=== PATIENT | female | born 1975 | race Caucasian/White ===

== ENCOUNTER → 2017-05-08 | Outpatient (CLI) | payer OTHER ==
--- NOTE | 2017-05-08 14:35 | CT ---
EXAMINATION TYPE: CT chest w con DATE OF EXAM: 05/08/2017 COMPARISON: 1121 and 12 HISTORY: Abnormal CXR CT DLP: 417 mGycm Automated exposure control for dose reduction was used. CONTRAST: CT scan of the chest is performed with IV Contrast, patient injected with 100 ml mL of Omnipaque 300. FINDINGS: LUNGS: The lungs are grossly clear, there is no concerning parenchymal mass or nodule identified. T here is no pleural effusion or pneumothorax seen. The tracheobronchial tree is patent. MEDIASTINUM: There are no greater than 1 cm hilar or mediastinal lymph nodes. No pericardial effusi on is seen. Thoracic aorta is of normal caliber. The heart is not enlarged. UPPER ABDOMEN: No significant abnormality appreciated. OTHER: There is a severe pectus excavatum deformity of the anterior chest wall. This is unchanged fr om prior examination. IMPRESSION: 1. Stable pectus deformity of the anterior chest wall.
== END | disposition home or self-care (01) ==
LOC: RADCTMAIN 13:36
PROVIDERS: ATTEND Family Medicine
DX: M95.4 Acquired deformity of chest and rib (principal)
CPT/HCPCS: 71260; Q9967

== ENCOUNTER → 2017-05-24 | Outpatient (CLI) | payer OTHER ==
--- NOTE | 2017-05-24 11:39 | MR ---
EXAMINATION TYPE: MR brain/cspine wo DATE OF EXAM: 05/24/2017 COMPARISON: NONE HISTORY: 41-year-old female with headaches, Migraines, neck pain, Cervicalgia TECHNIQUE: Multiplanar, multisequence images of the brain and brainstem were acquired without IV con trast. Diffusion weighted imaging is performed. Subsequent multiplanar, multisequence images of the c ervical spine without contrast. FINDINGS: BRAIN: No evidence for acute infarction, hemorrhage, mass, mass effect, midline shift, herniation, effacemen t of basal cisterns, or extra-axial fluid collection. The ventricles and sulci are age-appropriate. Major intracranial flow voids are intact. T2/FLAIR weighted sequences show no white matter signal abnormality. Midline structures demonstrate normal morphology. The craniocervical junction is normal. Patient gaze is slightly divergent suggesting underlying strabismus. Mild mucosal thickening within the ethmoid air cells, couple small polyps or mucous retention cyst in the anterior right maxillary sinus and in the left lateral sphenoid sinus. Larger polyp/mucosal rete ntion cyst along the floor of the left maxillary sinus. Additionally, there is partial opacification involving the left mastoid air cells. CERVICAL SPINE: There is a 8mm cystic structure in the left strap musculature abutting the left thyroid cartilage diallo pected thyroglossal duct cyst. No craniocervical junction abnormalities, predental space widening, or prevertebral soft tissue swell ing. There is slight straightening of the normal cervical vertebral cysts but with preserved alignment. Di sc interspaces are maintained without any focal disc herniation. Mild facet degenerative change is noted and mild uncovertebral joint spurring as well. No spinal canal stenosis. No significant neural foraminal stenosis seen. No suspicious bone marrow replacement. Normal T2 cord signal of the cervical cord allowing for the scatter artifacts. COMBINED IMPRESSION: BRAIN: 1. No intracranial abnormality seen. 2. Findings suggest a subtle strabismus. Correlate with physical exam findings. 3. Trapped fluid in the left mastoid air cells. Correlate for any mastoid pain to exclude mastoiditis . 4. Mild chronic ethmoid and maxillary sinus disease. CERVICAL SPINE: 1. Scattered facet and mild uncovertebral joint arthropathy. 2. No significant spinal canal or neural foraminal stenosis.
== END | disposition home or self-care (01) ==
LOC: RADMRIMAIN 09:20
PROVIDERS: ATTEND Family Medicine
DX: M46.02 Spinal enthesopathy, cervical region (principal); M54.2 Cervicalgia; R51 Headache; Z86.69 Personal history of other diseases of the nervous system and sense organs
CPT/HCPCS: 70551; 72141

== ENCOUNTER → 2017-07-03 | Outpatient (CLI) | payer OTHER ==
[2017-07-01 16:54] VITALS: BMI 17.2
[2017-07-03 11:57] VITALS: BP 111/75; PULSE 87; RESP 16; TEMP 97.7
--- NOTE | 2017-07-03 12:18 | P.CONS ---
History of Present Illness - Reason for Consult Consult date: 07/03/17 - Chief Complaint Headache and neck pain - History of Present Illness This is a 41-year-old female with history of headache and neck pain that started about one year ago when the patient woke up in the morning after being drunk . The pain radiates from the occipital area to the frontal area of the head with no paresthesia in the scalp. She also feels pain in the upper neck area on both sides of the cervical spine. The patient denies any paresthesia in the upper or lower extremities also she denies any weakness in the upper or lower extremities and or any bowel or bladder dysfunction. This pain does not wake the patient up at night. The patient lost a few pounds overweight and she attributed that to started to smoke cigarettes again. Movement of the cervical spine does not increase her pain. The patient does not notice any exacerbating or relieving factors however she takes Motrin for the pain and uses warm pads. This pain happens almost daily and goes away and most of the time on its own. 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 The patient smokes half a pack of cigarettes a day and she denies using any alcohol at this time. Past Medical History Additional Past Medical History / Comment(s): chronic neck pain, frequent headaches-start back of head, currently has cough & congestion-just started, has thyroglossal cyst-to see ENT dr. freeman History of Any Multi-Drug Resistant Organisms: None Reported Past Surgical History: Adenoidectomy, Ear Surgery, Tonsillectomy, Tubal Ligation , Uterine Ablation Additional Past Surgical History / Comment(s): tubes in ears, D & C, LEEP procedure Past Anesthesia/Blood Transfusion Reactions: No Reported Reaction Smoking Status: Current every day smoker - Past Family History Father Family Medical History: Cancer Medications and Allergies Home Medications Medication Instructions Recorded Confirmed Type Aspirin/Acetaminophen/Caffeine 1 each PO Q6H 07/01/17 07/01/17 History [Excedrin Migraine Caplet] Ibuprofen [Motrin] 200 - 400 mg PO Q6HR PRN 07/01/17 07/01/17 History Amoxic-Pot Clav 500-125 mg 1 tab PO TID 07/03/17 07/03/17 History [Augmentin 500-125 mg] L.acidoph,Paracasei, B.lactis 1 tab PO DAILY 07/03/17 07/03/17 History [Probiotic] Allergies Allergy/AdvReac Type Severity Reaction Status Date / Time Latex, Natural Rubber Allergy Rash/Hives Verified 07/01/17 16:52 Physical Exam Vitals: Vital Signs Temp Pulse Resp BP Pulse Ox 07/03/17 11:47 97.7 F 87 16 111/75 100 - Psychiatric Psychiatric: A&O x's 3, appropriate affect, intact judgment & insight There is tenderness in the cervical paravertebral musculature, there is no tenderness in the occipital area. The patient has normal muscle strength in the upper extremities. She has normal range of motion of the cervical spine. Lungs are clear to auscultation heart is regular no murmurs. Assessment and Plan Plan: This is a 41-year-old female with history of occipital and upper neck area pain with no neurologic changes of the upper or lower extremities. The patient's cervical spine MRI showed only mild spondylosis. The brain MRI was also normal except for some thickening in the ethmoid sinus mucosa and the patient is taking antibiotics for this. The MRI also showed large polyp/mucosal retention cyst along the floor of the left maxillary sinus. At this point I will schedule the patient to have occipital nerve block bilaterally as diagnostic procedure and also to have trigger point injection in the cervical paravertebral musculature. The procedure was explained to the patient and her questions were answered.
== END | disposition home or self-care (01) ==
LOC: PNWHC3 11:38
PROVIDERS: ATTEND Anesthesiology
DX: M47.812 Spondylosis without myelopathy or radiculopathy, cervical region (principal); F17.200 Nicotine dependence, unspecified, uncomplicated; Z79.82 Long term (current) use of aspirin; Z79.899 Other long term (current) drug therapy; Z91.040 Latex allergy status
CPT/HCPCS: 99211

== ENCOUNTER 2017-07-15 06:19 | Day surgery (SDC) | payer OTHER ==
[2017-07-10 17:24] VITALS: BMI 17.2
[~2017-07-15 06:19] MED LIST: LACTATED RINGERS 1,000 ML IV SCH
[2017-07-15 06:48] VITALS: TEMP 97.3
[2017-07-15] MEDS ORDERED: LIDOCAINE 1% 20 ML VIAL (10MG/ML) FOR IV START INTRADERMA ONE (07:06)
--- NOTE | 2017-07-15 07:31 | P.PCN ---
Date of Procedure: 07/15/17 Procedure(s) Performed: Pre-operative diagnosis: 1- Bilateral occipital neuralgea. 2-myofascial pain syndromes cervical area. 3-cervical spondylosis. Post Operative Diagnosis Same as preop diagnosis Procedure: 1- Bilateral occipital nerve block . 2-3 trigger point injections cervical paravertebral muscles 2 on the right side , and 3 on the left side cervical paravertebral muscles ANESTHESIA: Conscious sedation with Versed. 2 mg and fentanyl 100 micrograms EBL: Minimal PROCEDURE INDICATION: The patient with neck pain and headache secondary to occipital neuralgea unresponsive to conservative treatments. PROCEDURE DESCRIPTION / TECHNIQUE: The patient was seen and identified in the preoperative area. Risks, benefits, complications, and alternatives were discussed with the patient, the patient agreed to proceed with the procedure and signed the consent. IV was started. Vital signs remained stable throughout the procedure. Patient was taken to the OR and time out was completed. The patient was placed in the sitting position on the procedure table. A pillow was placed under the patients chest to increase the cervical interlaminar space. The cervical area and right occiptial area were prepped with alcohol swab. Critical pause was taken. Vital signs were closely monitored during the procedure. Conscious sedation was used during the procedure to decrease patients anxiety. The right occiptal ridge was palpated and was then accessed with a 25 G needle. Then after negative aspiration, 5 ml of the block solution containing 6 ml of PF Buvicaine 0.5% and Kenalog 40 mg was injected. Needle was withdrawn intact. Then the same procedure was repeated on the left side and related the left occipital nerve block, after negative aspiration 5 mL of the block solution containing ropivacaine 0.5% and 40 mg of Kenalog injected after negative aspiration The trigger point was identified in the preop holding area, 2 on the right side cervical paravertebral muscles and 3 on the left side cervical paravertebral muscles each one of them injected with Marcaine 0.5% 2 mL injected at each trigger point after negative aspiration, using 25-gauge needle, injections done after negative aspiration and there was no paresthesia during the injections, Patient tolerated procedure well. No acute complications.
[2017-07-15 08:00] VITALS: BP 93/68; PULSE 71; RESP 18
[2017-07-15] MEDS ORDERED: LACTATED RINGERS 1,000 ML IV ONE (08:01)
== END 2017-07-15 08:09 | disposition home or self-care (01) ==
LOC: ORPAIN 06:19
PROVIDERS: ATTEND Specialist
DX: M54.81 Occipital neuralgia (principal); M47.812 Spondylosis without myelopathy or radiculopathy, cervical region; M79.1 Myalgia; Z91.040 Latex allergy status
CPT/HCPCS: 99152; 20553; 64405; J2250; J3301; J3010

== ENCOUNTER 2017-10-16 06:26 | Day surgery (SDC) | payer OTHER ==
[2017-10-10 12:18] VITALS: BMI 16.9
[2017-10-16] MEDS ORDERED: LACTATED RINGERS 1,000 ML IV ONE (06:40)
[2017-10-16] MEDS ORDERED: LIDOCAINE 1% 20 ML VIAL (10MG/ML) FOR IV START INTRADERMA ONE (06:40)
[2017-10-16] MEDS ORDERED: LACTATED RINGERS 1,000 ML IV SCH (07:00)
--- NOTE | 2017-10-16 07:19 | P.PCN ---
Date of Procedure: 10/16/17 Procedure(s) Performed: Pre-operative diagnosis: 1- Bilateral occipital neuralgea Post Operative Diagnosis 1- Bilateral occipital neuralgea Procedure: 1- Bilateral occipital nerve block ANESTHESIA: Moderate sedation with Versed.2 mg and fentanyl 100 micrograms EBL: Minimal PROCEDURE INDICATION: The patient with neck pain and headache secondary to occipital neuralgea unresponsive to conservative treatments. PROCEDURE DESCRIPTION / TECHNIQUE: The patient was seen and identified in the preoperative area. Risks, benefits, complications, and alternatives were discussed with the patient, the patient agreed to proceed with the procedure and signed the consent. IV was started. Vital signs remained stable throughout the procedure. Patient was taken to the OR and time out was completed. The patient was placed in the pron (sitting ) position on the procedure table. A pillow was placed under the patients chest to increase the cervical interlaminar space. The cervical area and right occiptial area were prepped with alcohol swab. Critical pause was taken. Vital signs were closely monitored during the procedure. Conscious sedation was used during the procedure to decrease patients anxiety. The right occiptal ridge was palpated and was then accessed with a 25 G needle. Then after negative aspiration, 6 ml of the block solution containing 6 ml of PF Buvicaine 0.5% and Kenalog 40 mg was injected. Needle was withdrawn intact. Then the same procedure was repeated on the left side and related the left occipital nerve block, after negative aspiration 6 mL of the block solution containing ropivacaine 0.5% and 40 mg of Kenalog injected after negative aspiration Patient tolerated procedure well. No acute complications.
[2017-10-16] MEDS ORDERED: IV FLUID CONTINUATION 800 ML IV ONE (07:24)
[2017-10-16 16:27] VITALS: BP 95/61; PULSE 77; RESP 18; TEMP 98.1
== END 2017-10-16 08:00 | disposition home or self-care (01) ==
LOC: ORPAIN 06:26
PROVIDERS: ATTEND Specialist
DX: M54.81 Occipital neuralgia (principal); Z91.040 Latex allergy status
CPT/HCPCS: 81025; 64405; J2250; J3301; J3010; G0463; 99211

== ENCOUNTER → 2017-11-11 | Outpatient (CLI) | payer OTHER ==
[2017-11-11 13:51] VITALS: BP 110/75; PULSE 60; RESP 18; TEMP 98.2
--- NOTE | 2017-11-11 14:26 | P.PN ---
Progress Note - Text Progress Note Date: 11/11/17 Patient returns for followup for chronic headache pain secondary to occipital neuralgia. Patient recently underwent bilateral ONB at the beginning of October with good relief since procedure. Patient denies adverse drug effects from medications. Today, pt denies new-onset weakness, bowel/bladder incontinence, or any other signs or symptoms of cauda equina syndrome. There are no signs of acute intoxication, and no indications of medication diversion or overuse. In addition to above, 13-point review of systems is also negative for chest pain , shortness of breath, changes in vision, changes in hearing, new onset weakness , abdominal pain, diarrhea, extreme fatigue, malaise, fever, skin changes, homicidal or suicidal ideation, or bowel or bladder incontinence. Vital Signs: Reviewed in EMR Gen: WDWN, AAOx3, NAD HEENT: NCAT, EOMI, hearing grossly normal, + TTP over occipital ridges Pulm: resp unlabored Abd: soft, NT, ND Neck: supple, trachea midline Imaging: Reviewed in EMR Assessment: 1. occipital neuralgia 2. chronic pain syndrome Plan: 1. Explanation: Opioid and psychological risk scores were reviewed. Diagnoses , prognoses, and multiple treatment options including but not limited to physical therapy, interventional therapies, adjuvant medical therapies, narcotic medication therapies, and surgery were discussed with the patient and all questions were answered to the patient's satisfaction. 2. Opioid agreement: no opioids prescribed today 3. Counseling: The patient was counseled extensively on BODY MASS INDEX, EXERCISE. Specifically, the patient was instructed regarding the importance of weight control, and exercise in the context of both chronic pain and overall health. 4. Procedures: bilateral ONB in approximately 8 weeks 5. Consultations: None 6. Investigations: None 7. Medications: none prescribed 8. Disposition: f/u for procedure as scheduled PQRS measures: 1-Patient's medications are documented in the chart. 2-Tobacco use is negative 3-Patient has not had a pneumococcal vaccine. 4-Advanced care planning discussed, patient unable to give. 5-Opioid contract NOT signed with the patient. 6-Pain positive, follow-up visit or procedure scheduled 7-Patient's blood pressure measured and documented, and patient will follow up with the primary care due to hypertension. 8-Patient's weight was measured, and body mass index ABOVE the normal limits, and counseling was done. Patient instructed to follow up with PCP. 9-Patient WAS NOT identified as an unhealthy alcohol user.
== END | disposition home or self-care (01) ==
LOC: PNWHC3 13:32
PROVIDERS: ATTEND Anesthesiology
DX: G89.4 Chronic pain syndrome (principal); M54.81 Occipital neuralgia
CPT/HCPCS: 99211

== ENCOUNTER 2018-03-10 20:21 | Emergency (ER) | payer OTHER ==
[2018-03-10 20:40] VITALS: RESP 18
[2018-03-10] MEDS ORDERED: SODIUM CHLORIDE 0.9% 500 ML IV STA (20:56)
[2018-03-10] MEDS ORDERED: AZITHROMYCIN 500 MG in SODIUM CHLORIDE 0.9% 250 ML IVPB STA (20:56)
[2018-03-10] MEDS ORDERED: SODIUM CHLORIDE 0.9% 1,000 ML IV STA ×2 (20:56)
[2018-03-10] MEDS ORDERED: methylPREDNISolone SOD SUCCI 125 MG/2 ML VIAL IV STA (20:56)
[2018-03-10] MEDS ORDERED: IPRATROPIUM 0.5 MG/2.5 ML NEBU INHALATION STA (20:56)
[2018-03-10] MEDS ORDERED: ALBUTEROL NEBULIZED 2.5 MG/3 ML INHALATION STA (20:56)
--- NOTE | 2018-03-10 21:03 | ED ---
General Adult HPI - General Chief complaint: Shortness of Breath Stated complaint: REGULO/Chest Pain/swollen throat Time Seen by Provider: 03/10/18 20:45 Source: patient, RN notes reviewed, old records reviewed Mode of arrival: ambulatory Limitations: no limitations - History of Present Illness Initial comments: This is a 42-year-old female the ER for evaluation of shortness of breath, left- sided chest pain with positive shortness of breath. Symptoms worsened he takes a deep breath, patient unable to take deep breath secondary to pain. She has had history of pneumonia does have history of continue to smoke. Denies known fever but does have increased cough and congestion no travel history no known sick contacts. No modifying factors for symptoms - Related Data Home Medications Medication Instructions Recorded Confirmed Albuterol Inhaler [Ventolin Hfa 1 puff INHALATION RT-Q6H PRN 03/10/18 03/10/18 Inhaler] Ergocalciferol [Vitamin D2] 50,000 unit PO TU 03/10/18 03/10/18 Ibuprofen [Motrin Ib] 800 mg PO TID PRN 03/10/18 03/10/18 Naproxen Sodium [Aleve] 220 mg PO BID PRN 03/10/18 03/10/18 Allergies Allergy/AdvReac Type Severity Reaction Status Date / Time Latex, Natural Rubber Allergy Rash/Hives Verified 03/10/18 21:09 Review of Systems ROS Statement: Those systems with pertinent positive or pertinent negative responses have been documented in the HPI. ROS Other: All systems not noted in ROS Statement are negative. Past Medical History Past Medical History: Musculoskeletal Disorder Additional Past Medical History / Comment(s): chronic neck pain, frequent headaches-start back of head,thyroglossal cyst History of Any Multi-Drug Resistant Organisms: None Reported Past Surgical History: Adenoidectomy, Ear Surgery, Tonsillectomy, Tubal Ligation , Uterine Ablation Additional Past Surgical History / Comment(s): BMT.D & C, LEEP procedure, PAIN CLINIC INJECTIONS Past Anesthesia/Blood Transfusion Reactions: No Reported Reaction Past Psychological History: No Psychological Hx Reported Smoking Status: Current every day smoker Past Alcohol Use History: Rare Past Drug Use History: None Reported - Past Family History Father Family Medical History: Cancer General Exam Limitations: no limitations General appearance: alert, in no apparent distress Head exam: Present: atraumatic, normocephalic, normal inspection Eye exam: Present: normal appearance, PERRL, EOMI. Absent: scleral icterus, conjunctival injection, periorbital swelling ENT exam: Present: normal exam, mucous membranes moist Neck exam: Present: normal inspection. Absent: tenderness, meningismus, lymphadenopathy Respiratory exam: Present: normal lung sounds bilaterally. Absent: respiratory distress, wheezes, rales, rhonchi, stridor Cardiovascular Exam: Present: regular rate, normal rhythm, normal heart sounds. Absent: systolic murmur, diastolic murmur, rubs, gallop, clicks GI/Abdominal exam: Present: soft, normal bowel sounds. Absent: distended, tenderness, guarding, rebound, rigid Extremities exam: Present: normal inspection, full ROM, normal capillary refill. Absent: tenderness, pedal edema, joint swelling, calf tenderness Back exam: Present: normal inspection Neurological exam: Present: alert, oriented X3, CN II-XII intact Psychiatric exam: Present: normal affect, normal mood Skin exam: Present: warm, dry, intact, normal color. Absent: rash Course Vital Signs 03/10/18 03/10/18 03/10/18 20:38 21:11 21:24 Temperature 98.8 F Pulse Rate 115 H 99 91 Respiratory 18 18 Rate Blood Pressure 118/56 129/60 O2 Sat by Pulse 97 98 Oximetry 03/10/18 03/10/18 03/10/18 21:33 21:55 22:33 Temperature 99.9 F H Pulse Rate 95 107 H 107 H Respiratory 18 18 Rate Blood Pressure 121/55 108/56 O2 Sat by Pulse 100 96 Oximetry - Reevaluation(s) Reevaluation #1: 03/10/18 23:10 Patient does have improvement with breathing treatment Medical Decision Making - Medical Decision Making 42 female the ER with left-sided chest pain secondary shortness breath cough congestion wheezing. Positive bronchitis. Patient CT negative labwork normal EKG negative, patient given nebulizer treatments, albuterol and can be discharged home - Lab Data Result diagrams: 03/10/18 21:00 03/10/18 21:00 Lab Results 03/10/18 03/10/18 03/10/18 Range/Units 21:00 21:00 21:00 WBC 8.0 (3.8-10.6) k/uL RBC 4.00 (3.80-5.40) m/uL Hgb 12.5 (11.4-16.0) gm/dL Hct 36.4 (34.0-46.0) % MCV 91.1 (80.0-100.0) fL MCH 31.3 (25.0-35.0) pg MCHC 34.3 (31.0-37.0) g/dL RDW 12.4 (11.5-15.5) % Plt Count 132 L (150-450) k/uL Neutrophils % 83 % Lymphocytes % 8 % Monocytes % 7 % Eosinophils % 1 % Basophils % 0 % Neutrophils # 6.6 (1.3-7.7) k/uL Lymphocytes # 0.7 L (1.0-4.8) k/uL Monocytes # 0.5 (0-1.0) k/uL Eosinophils # 0.1 (0-0.7) k/uL Basophils # 0.0 (0-0.2) k/uL PT (9.0-12.0) sec INR (<1.2) APTT (22.0-30.0) sec D-Dimer (<0.60) mg/L FEU Sodium 139 (137-145) mmol/L Potassium 3.9 (3.5-5.1) mmol/L Chloride 102 (98-107) mmol/L Carbon Dioxide 27 (22-30) mmol/L Anion Gap 10 mmol/L BUN 14 (7-17) mg/dL Creatinine 0.67 (0.52-1.04) mg/dL Est GFR (CKD-EPI)AfAm >90 (>60 ml/min/1.73 sqM) Est GFR (CKD-EPI)NonAf >90 (>60 ml/min/1.73 sqM) Glucose 104 H (74-99) mg/dL Calcium 8.7 (8.4-10.2) mg/dL Total Bilirubin 0.6 (0.2-1.3) mg/dL AST 16 (14-36) U/L ALT 26 (9-52) U/L Alkaline Phosphatase 63 (38-126) U/L Total Creatine Kinase 47 (30-135) U/L CK-MB (CK-2) <0.2 (0.0-2.4) ng/mL CK-MB (CK-2) Rel Index Troponin I <0.012 (0.000-0.034) ng/mL NT-Pro-B Natriuret Pep pg/mL Total Protein 5.9 L (6.3-8.2) g/dL Albumin 3.8 (3.5-5.0) g/dL 03/10/18 03/10/18 Range/Units 21:00 21:00 WBC (3.8-10.6) k/uL RBC (3.80-5.40) m/uL Hgb (11.4-16.0) gm/dL Hct (34.0-46.0) % MCV (80.0-100.0) fL MCH (25.0-35.0) pg MCHC (31.0-37.0) g/dL RDW (11.5-15.5) % Plt Count (150-450) k/uL Neutrophils % % Lymphocytes % % Monocytes % % Eosinophils % % Basophils % % Neutrophils # (1.3-7.7) k/uL Lymphocytes # (1.0-4.8) k/uL Monocytes # (0-1.0) k/uL Eosinophils # (0-0.7) k/uL Basophils # (0-0.2) k/uL PT 9.8 (9.0-12.0) sec INR 1.0 (<1.2) APTT 24.4 (22.0-30.0) sec D-Dimer 0.37 (<0.60) mg/L FEU Sodium (137-145) mmol/L Potassium (3.5-5.1) mmol/L Chloride (98-107) mmol/L Carbon Dioxide (22-30) mmol/L Anion Gap mmol/L BUN (7-17) mg/dL Creatinine (0.52-1.04) mg/dL Est GFR (CKD-EPI)AfAm (>60 ml/min/1.73 sqM) Est GFR (CKD-EPI)NonAf (>60 ml/min/1.73 sqM) Glucose (74-99) mg/dL Calcium (8.4-10.2) mg/dL Total Bilirubin (0.2-1.3) mg/dL AST (14-36) U/L ALT (9-52) U/L Alkaline Phosphatase (38-126) U/L Total Creatine Kinase (30-135) U/L CK-MB (CK-2) (0.0-2.4) ng/mL CK-MB (CK-2) Rel Index Troponin I (0.000-0.034) ng/mL NT-Pro-B Natriuret Pep 108 pg/mL Total Protein (6.3-8.2) g/dL Albumin (3.5-5.0) g/dL - Radiology Data Radiology results: report reviewed (Chest x-rays negative for acute disease, CT negative for acute disease), image reviewed Disposition Clinical Impression: Acute exacerbation of chronic obstructive airways disease Disposition: HOME SELF-CARE Condition: Good Instructions: Acute Bronchitis (ED), Chronic Bronchitis (ED) Is patient prescribed a controlled substance at d/c from ED?: No Referrals: Laura Feliz MD [Primary Care Provider] - 1-2 days
[2018-03-10 21:18] LABS: Basophils % (A) 0 %; Eosinophils # (A) 0.1 k/uL (0-0.7); Eosinophils % (A) 1 %; HCT 36.4 % (34.0-46.0); HGB 12.5 gm/dL (11.4-16.0); Lymphocytes # (A) 0.7 k/uL (1.0-4.8); Lymphocytes % (A) 8 %; MCH 31.3 pg (25.0-35.0); MCHC 34.3 g/dL (31.0-37.0); MCV 91.1 fL (80.0-100.0); Mean Platelet Volume 7.8; Monocytes # (A) 0.5 k/uL (0-1.0); Monocytes % (A) 7 %; Neutrophils # (A) 6.6 k/uL (1.3-7.7); Neutrophils % (A) 83 %; Platelet Count 132 k/uL (150-450); RDW 12.4 % (11.5-15.5)
--- NOTE | 2018-03-10 21:20 | XR ---
EXAMINATION TYPE: XR chest 1V portable DATE OF EXAM: 03/10/2018 COMPARISON: Prior chest 08/24/2012 HISTORY: Shortness of breath TECHNIQUE: Single frontal view of the chest is obtained. FINDINGS: Patient is rotated. There are overlying cardiac leads. There is a pectus deformity present. There is no focal air space opacity, pleural effusion, or pneumothorax seen. The cardiac silhouett e size is within normal limits. The osseous structures are intact. IMPRESSION: No acute process.
[2018-03-10 21:26] LABS: ALT 26 U/L (9-52); AST 16 U/L (14-36); Albumin 3.8 g/dL (3.5-5.0); Alkaline Phosphatase 63 U/L (38-126); Anion Gap 10 mmol/L; Blood Urea Nitrogen 14 mg/dL (7-17); Calcium 8.7 mg/dL (8.4-10.2); Carbon Dioxide 27 mmol/L (22-30); Chloride 102 mmol/L (98-107); Glucose 104 mg/dL (74-99); Potassium 3.9 mmol/L (3.5-5.1); Sodium 139 mmol/L (137-145); Total Bilirubin 0.6 mg/dL (0.2-1.3); Total Protein 5.9 g/dL (6.3-8.2)
[2018-03-10 21:28] LABS: Creatine Kinase 47 U/L (30-135)
[2018-03-10 21:32] LABS: D-Dimer 0.37 mg/L FEU (<0.60); Partial Thromboplastin Time 24.4 sec (22.0-30.0); Prothrombin Time 9.8 sec (9.0-12.0)
[2018-03-10] MEDS ORDERED: RX INFO: IV CONTRAST WAS GIVEN 1 EACH MISC MISCELLANE PRN (21:33)
[2018-03-10 21:40] LABS: Creatine Kinase MB <0.2 ng/mL (0.0-2.4); Troponin I <0.012 ng/mL (0.000-0.034)
--- NOTE | 2018-03-10 22:51 | CT ---
EXAMINATION TYPE: CT angio chest DATE OF EXAM: 03/10/2018 10:32 PM COMPARISON: NONE HISTORY: Chest pain CT DLP: 116.6 mGycm Automated exposure control for dose reduction was used. CONTRAST: CTA scan of the thorax is performed with IV Contrast, patient injected with 75 mL of Isovue 370, pulm onary embolism protocol. There are 3-D post processed images.. FINDINGS: The heart and mediastinum appear normal. There are no hilar masses. I see no filling defects in the p ulmonary arteries. There is no evidence of aortic aneurysm or dissection. There is pectus excavatum c hest deformity. There is subsegmental atelectasis at the right lung base. There is no pericardial eff usion. There is no pleural effusion. IMPRESSION: PECTUS EXCAVATUM CHEST DEFORMITY. NORMAL CT ANGIOGRAM OF THE CHEST. NO EVIDENCE OF PULMONARY EMBOLISM .
[2018-03-10 23:26] VITALS: BP 102/55; PULSE 97; TEMP 98.6
== END 2018-03-10 23:33 | disposition home or self-care (01) ==
LOC: EC 20:21
DX: J44.1 Chronic obstructive pulmonary disease with (acute) exacerbation (principal); F17.200 Nicotine dependence, unspecified, uncomplicated; Z79.899 Other long term (current) drug therapy; Z91.040 Latex allergy status
CPT/HCPCS: 36415; 94644; 93005; 85379; 83880; 80053; 82550; 82553; 84484; 85025; 85610; 85730; 87040; 71045; 71275; 99285; 96365; 96366; 96375; J2930; J0456; Q9967

== ENCOUNTER → 2018-12-19 | Outpatient (CLI) | payer OTHER ==
[2018-12-19 08:34] LABS: Basophils % (A) 1 %; Eosinophils # (A) 0.2 k/uL (0-0.7); Eosinophils % (A) 5 %; HCT 43.1 % (34.0-46.0); HGB 14.4 gm/dL (11.4-16.0); Lymphocytes # (A) 1.1 k/uL (1.0-4.8); Lymphocytes % (A) 32 %; MCH 30.9 pg (25.0-35.0); MCHC 33.5 g/dL (31.0-37.0); MCV 92.4 fL (80.0-100.0); Mean Platelet Volume 7.1; Monocytes # (A) 0.2 k/uL (0-1.0); Monocytes % (A) 6 %; Neutrophils # (A) 1.9 k/uL (1.3-7.7); Neutrophils % (A) 54 %; Platelet Count 150 k/uL (150-450); RBC 4.67 m/uL (3.80-5.40); RDW 12.6 % (11.5-15.5); WBC 3.6 k/uL (3.8-10.6)
[2018-12-19 16:28] LABS: ALT 32 U/L (8-44); AST 31 U/L (13-35); Albumin/Globulin Ratio 2.25 (1.60-3.17); Alkaline Phosphatase 62 U/L (41-126); Calcium 9.5 mg/dL (8.7-10.3); Carbon Dioxide 28.2 mmol/L (21.6-31.8); Chloride 109 mmol/L (96-109); Cholesterol 169 mg/dL (0-200); Glucose 89 mg/dL (70-110); Potassium 4.1 mmol/L (3.5-5.5); Sodium 143 mmol/L (135-145); Total Bilirubin 0.6 mg/dL (0.2-1.2); Total Protein 6.5 g/dL (6.2-8.2); Triglycerides <50.0 mg/dL (0.0-149.0); VLDL Calculation 9.98 mg/dL (5.00-40.00)
== END | disposition home or self-care (01) ==
LOC: LABWHC1 08:04
PROVIDERS: ATTEND Family Medicine
DX: Z00.00 Encounter for general adult medical examination without abnormal findings (principal); R92.8 Other abnormal and inconclusive findings on diagnostic imaging of breast; E55.9 Vitamin D deficiency, unspecified; E78.5 Hyperlipidemia, unspecified
CPT/HCPCS: 36415; 80053; 80061; 82306; 84439; 84443; 85025

== ENCOUNTER → 2019-11-10 | Outpatient (CLI) | payer OTHER ==
[2019-11-10 21:03] LABS: Hepatitis A Antibody IgM Non-Reactive (Non-Reactive); Hepatitis B Core IgM Non-Reactive (Non-Reactive); Hepatitis B Surface Antigen Non-Reactive (Non-Reactive); Hepatitis C IgG Antibody Non-Reactive (Non-Reactive)
[2019-11-15 20:43] LABS: HIV 1 AB Non-Reactive (Non-Reactive); HIV 2 AB Non-Reactive (Non-Reactive); HIV AB P24 Non-Reactive (Non-Reactive); HIV P24 AG Non-Reactive (Non-Reactive)
== END | disposition home or self-care (01) ==
LOC: LABWHC1 11:49
PROVIDERS: ATTEND Midwife
DX: Z11.3 Encounter for screening for infections with a predominantly sexual mode of transmission (principal)
CPT/HCPCS: 36415; 80074; 86780; 87390

== ENCOUNTER 2020-04-14 09:23 | Emergency (ER) | payer OTHER ==
[2020-04-14 09:34] VITALS: TEMP 98
[2020-04-14] MEDS ORDERED: SODIUM CHLORIDE 0.9% 1,000 ML IV STA (09:59)
--- NOTE | 2020-04-14 10:12 | ED ---
General Adult HPI - General Chief complaint: Abdominal Pain Stated complaint: Left sided pain; sudden weight loss Time Seen by Provider: 04/14/20 09:39 Source: patient, RN notes reviewed Mode of arrival: ambulatory Limitations: no limitations - History of Present Illness Initial comments: 44-year-old female presents to the emergency department for a chief complaint of left upper quadrant pain times months. Patient states that a few months ago this started happening only after she ate and progressively has become more constant. Denies any right upper quadrant pain. Denies lower abdominal pain. States bowel movements are normal. Denies nausea vomiting. Patient does report that she lost about 5 pounds over the past week. She states she is eating normally and denies diarrhea.Patient has no other complaints at this time including shortness of breath, chest pain, nausea or vomiting, headache, or visual changes. - Related Data Home Medications Medication Instructions Recorded Confirmed Ibuprofen [Motrin Ib] 800 mg PO TID PRN 03/10/18 04/14/20 Loratadine 10 mg PO DAILY PRN 04/14/20 04/14/20 Previous Rx's Medication Instructions Recorded Pantoprazole Sodium [Protonix] 40 mg PO DAILY #14 tablet. 04/14/20 Allergies Allergy/AdvReac Type Severity Reaction Status Date / Time Latex, Natural Rubber Allergy Rash/Hives Verified 04/14/20 10:13 Review of Systems ROS Statement: Those systems with pertinent positive or pertinent negative responses have been documented in the HPI. ROS Other: All systems not noted in ROS Statement are negative. Past Medical History Past Medical History: Musculoskeletal Disorder Additional Past Medical History / Comment(s): chronic neck pain, frequent headaches-start back of head,thyroglossal cyst History of Any Multi-Drug Resistant Organisms: None Reported Past Surgical History: Adenoidectomy, Ear Surgery, Tonsillectomy, Tubal Ligation, Uterine Ablation Additional Past Surgical History / Comment(s): BMT.D & C, LEEP procedure, PAIN CLINIC INJECTIONS Past Anesthesia/Blood Transfusion Reactions: No Reported Reaction Past Psychological History: No Psychological Hx Reported Smoking Status: Current every day smoker Past Alcohol Use History: Rare Past Drug Use History: None Reported - Past Family History Father Family Medical History: Cancer General Exam Limitations: no limitations General appearance: alert, in no apparent distress Head exam: Present: atraumatic, normocephalic, normal inspection Eye exam: Present: normal appearance, PERRL, EOMI. Absent: scleral icterus, conjunctival injection, periorbital swelling ENT exam: Present: normal exam, mucous membranes moist Neck exam: Present: normal inspection, full ROM. Absent: tenderness, meningismus, lymphadenopathy Respiratory exam: Present: normal lung sounds bilaterally. Absent: respiratory distress, wheezes, rales, rhonchi, stridor Cardiovascular Exam: Present: regular rate, normal rhythm, normal heart sounds. Absent: systolic murmur, diastolic murmur, rubs, gallop, clicks GI/Abdominal exam: Present: soft, normal bowel sounds. Absent: distended, tenderness (No abdominal tenderness), guarding, rebound, rigid Neurological exam: Present: alert Course Vital Signs 04/14/20 04/14/20 09:30 10:31 Temperature 98.0 F Pulse Rate 119 H 87 Respiratory 18 16 Rate Blood Pressure 114/83 99/68 O2 Sat by Pulse 99 99 Oximetry Medical Decision Making - Medical Decision Making Vitals are stable. Abdomen is completely nontender. CBC CMP unremarkable. Uri nalysis negative. X-ray KUB shows no evidence of bowel obstruction or pneumoperitoneum. At this time patient will be discharged home to follow up with primary care as well as GI for scope. She'll be put on a PPI as it could be related to peptic ulcer disease. She'll return here for any worsening symptoms. - Lab Data Result diagrams: 04/14/20 10:13 04/14/20 10:16 Lab Results 04/14/20 04/14/20 04/14/20 Range/Units 10:13 10:16 10:35 WBC 4.1 (3.8-10.6) k/uL RBC 4.67 (3.80-5.40) m/uL Hgb 14.5 (11.4-16.0) gm/dL Hct 43.4 (34.0-46.0) % MCV 93.0 (80.0-100.0) fL MCH 31.1 (25.0-35.0) pg MCHC 33.4 (31.0-37.0) g/dL RDW 12.3 (11.5-15.5) % Plt Count 140 L (150-450) k/uL Neutrophils % 60 % Lymphocytes % 26 % Monocytes % 7 % Eosinophils % 4 % Basophils % 1 % Neutrophils # 2.5 (1.3-7.7) k/uL Lymphocytes # 1.1 (1.0-4.8) k/uL Monocytes # 0.3 (0-1.0) k/uL Eosinophils # 0.2 (0-0.7) k/uL Basophils # 0.0 (0-0.2) k/uL Sodium 136 L (137-145) mmol/L Potassium 4.1 (3.5-5.1) mmol/L Chloride 107 (98-107) mmol/L Carbon Dioxide 23 (22-30) mmol/L Anion Gap 6 mmol/L BUN 15 (7-17) mg/dL Creatinine 0.70 (0.52-1.04) mg/dL Est GFR (CKD-EPI)AfAm >90 (>60 ml/min/1.73 sqM) Est GFR (CKD-EPI)NonAf >90 (>60 ml/min/1.73 sqM) Glucose 89 (74-99) mg/dL Calcium 9.2 (8.4-10.2) mg/dL Total Bilirubin 0.5 (0.2-1.3) mg/dL AST 22 (14-36) U/L ALT 19 (4-34) U/L Alkaline Phosphatase 53 (38-126) U/L Total Protein 6.8 (6.3-8.2) g/dL Albumin 4.4 (3.5-5.0) g/dL Amylase 75 (30-110) U/L Lipase 128 (23-300) U/L Urine Color Yellow Urine Appearance Clear (Clear) Urine pH 6.0 (5.0-8.0) Ur Specific [place] 1.006 (1.001-1.035) Urine Protein Negative (Negative) Urine Glucose (UA) Negative (Negative) Urine Ketones Negative (Negative) Urine Blood Negative (Negative) Urine Nitrite Negative (Negative) Urine Bilirubin Negative (Negative) Urine Urobilinogen <2.0 (<2.0) mg/dL Ur Leukocyte Esterase Moderate H (Negative) Urine RBC 2 (0-5) /hpf Urine WBC 4 (0-5) /hpf Ur Squamous Epith Cells 1 (0-4) /hpf Urine Mucus Rare H (None) /hpf Urine HCG, Qual (Not Detectd) 07/03/20 Range/Units 10:35 WBC (3.8-10.6) k/uL RBC (3.80-5.40) m/uL Hgb (11.4-16.0) gm/dL Hct (34.0-46.0) % MCV (80.0-100.0) fL MCH (25.0-35.0) pg MCHC (31.0-37.0) g/dL RDW (11.5-15.5) % Plt Count (150-450) k/uL Neutrophils % % Lymphocytes % % Monocytes % % Eosinophils % % Basophils % % Neutrophils # (1.3-7.7) k/uL Lymphocytes # (1.0-4.8) k/uL Monocytes # (0-1.0) k/uL Eosinophils # (0-0.7) k/uL Basophils # (0-0.2) k/uL Sodium (137-145) mmol/L Potassium (3.5-5.1) mmol/L Chloride (98-107) mmol/L Carbon Dioxide (22-30) mmol/L Anion Gap mmol/L BUN (7-17) mg/dL Creatinine (0.52-1.04) mg/dL Est GFR (CKD-EPI)AfAm (>60 ml/min/1.73 sqM) Est GFR (CKD-EPI)NonAf (>60 ml/min/1.73 sqM) Glucose (74-99) mg/dL Calcium (8.4-10.2) mg/dL Total Bilirubin (0.2-1.3) mg/dL AST (14-36) U/L ALT (4-34) U/L Alkaline Phosphatase (38-126) U/L Total Protein (6.3-8.2) g/dL Albumin (3.5-5.0) g/dL Amylase (30-110) U/L Lipase (23-300) U/L Urine Color Urine Appearance (Clear) Urine pH (5.0-8.0) Ur Specific [place] (1.001-1.035) Urine Protein (Negative) Urine Glucose (UA) (Negative) Urine Ketones (Negative) Urine Blood (Negative) Urine Nitrite (Negative) Urine Bilirubin (Negative) Urine Urobilinogen (<2.0) mg/dL Ur Leukocyte Esterase (Negative) Urine RBC (0-5) /hpf Urine WBC (0-5) /hpf Ur Squamous Epith Cells (0-4) /hpf Urine Mucus (None) /hpf Urine HCG, Qual Not Detected (Not Detectd) Disposition Clinical Impression: Abdominal pain Disposition: HOME SELF-CARE Condition: Good Instructions (If sedation given, give patient instructions): Abdominal Pain (ED) Additional Instructions: Please take antacid as directed. Please follow-up for primary care and GI in 1- 2 days. You would likely benefit from a scope. Return here to the emergency room if you have any worsening symptoms. Prescriptions: Pantoprazole Sodium [Protonix] 40 mg PO DAILY #14 tablet.dr Is patient prescribed a controlled substance at d/c from ED?: No Referrals: Laura Feliz MD [Primary Care Provider] - 1-2 days Oscar Friedman MD [STAFF PHYSICIAN] - 1-2 days Time of Disposition: 11:06
[2020-04-14 10:32] VITALS: BP 99/68; PULSE 87; RESP 16
--- NOTE | 2020-04-14 10:36 | XR ---
KUB HISTORY: Abdomen pain Frontal KUB is submitted. No comparisons Fallopian tubal ligation clips are present, one clip is overlying the L4-5 disc space and the other w ithin the right hemipelvis. Lung bases are clear. There is no evident bowel obstruction or pneumoperi toneum. Slight spinal curvature is present. IMPRESSION: Postprocedural changes as described with clips as above
[2020-04-14 10:39] LABS: Basophils % (A) 1 %; Eosinophils # (A) 0.2 k/uL (0-0.7); Eosinophils % (A) 4 %; HCT 43.4 % (34.0-46.0); HGB 14.5 gm/dL (11.4-16.0); Lymphocytes # (A) 1.1 k/uL (1.0-4.8); Lymphocytes % (A) 26 %; MCH 31.1 pg (25.0-35.0); MCHC 33.4 g/dL (31.0-37.0); Mean Platelet Volume 7.8; Monocytes # (A) 0.3 k/uL (0-1.0); Monocytes % (A) 7 %; Neutrophils # (A) 2.5 k/uL (1.3-7.7); Neutrophils % (A) 60 %; Platelet Count 140 k/uL (150-450); RBC 4.67 m/uL (3.80-5.40); RDW 12.3 % (11.5-15.5); WBC 4.1 k/uL (3.8-10.6)
[2020-04-14 10:45] LABS: Appearance,Urine Clear (Clear); Bilirubin,Urine Negative (Negative); Blood,Urine Negative (Negative); Color,Urine Yellow; Glucose,Urine (UA) Negative (Negative); Ketones,Urine Negative (Negative); Leukocyte Esterase,Urine Moderate (Negative); Mucus,Urine Rare /hpf; Nitrite,Urine Negative (Negative); Protein,Urine Negative (Negative); RBC,Urine 2 /hpf (0-5); Specific Gravity,Urine 1.006 (1.001-1.035); Squamous Epithelial Cell,Urine 1 /hpf (0-4); Urobilinogen,Urine <2.0 mg/dL (<2.0); WBC,Urine 4 /hpf (0-5)
[2020-04-14 10:49] LABS: ALT 19 U/L (4-34); AST 22 U/L (14-36); African American GFR (CKD) >90 (>60 ml/min/1.73 sqM); Albumin 4.4 g/dL (3.5-5.0); Alkaline Phosphatase 53 U/L (38-126); Amylase 75 U/L (30-110); Anion Gap 6 mmol/L; Blood Urea Nitrogen 15 mg/dL (7-17); Calcium 9.2 mg/dL (8.4-10.2); Carbon Dioxide 23 mmol/L (22-30); Chloride 107 mmol/L (98-107); Glucose 89 mg/dL (74-99); Lipase 128 U/L (23-300); Non-African American GFR(CKD) >90 (>60 ml/min/1.73 sqM); Potassium 4.1 mmol/L (3.5-5.1); Sodium 136 mmol/L (137-145); Total Bilirubin 0.5 mg/dL (0.2-1.3); Total Protein 6.8 g/dL (6.3-8.2)
== END 2020-04-14 11:15 | disposition home or self-care (01) ==
LOC: EC 09:23
DX: R10.12 Left upper quadrant pain (principal); R63.4 Abnormal weight loss; F17.200 Nicotine dependence, unspecified, uncomplicated; Z98.51 Tubal ligation status; Z98.890 Other specified postprocedural states; Z91.040 Latex allergy status
CPT/HCPCS: 36415; 74018; 80053; 81001; 81025; 82150; 83690; 85025; 96360; 99284

== ENCOUNTER → 2021-11-13 | Outpatient (CLI) | payer OTHER ==
[2021-11-13 16:42] LABS: Hepatitis B Surface Antigen Nonreactive (Nonreactive); Hepatitis C IgG Antibody Nonreactive (Nonreactive)
[2021-11-13 18:32] LABS: HIV 2 AB Non-Reactive (Non-Reactive); HIV AB P24 Non-Reactive (Non-Reactive); HIV P24 AG Non-Reactive (Non-Reactive)
== END | disposition home or self-care (01) ==
LOC: LABWHC1 10:29
DX: Z11.3 Encounter for screening for infections with a predominantly sexual mode of transmission (principal)
CPT/HCPCS: 36415; 86780; 86803; 87340; 87390

== ENCOUNTER → 2022-06-19 | Outpatient (CLI) | payer OTHER ==
--- NOTE | 2022-06-20 23:35 | US ---
EXAMINATION TYPE: US thyroid st tissue head/neck DATE OF EXAM: 06/19/2022 COMPARISON: NONE CLINICAL HISTORY: E04.1 THYROID NODULE. GLAND SIZE: Right Lobe: 4.5 x 1.5 x 2.9 cm Overall Parenchyma: somewhat heterogeneous Left Lobe: 4.4 x 1.2 x 1.5 cm Overall Parenchyma: heterogenous Isthmus Thickness: 0.3 cm NODULES RIGHT: nodules measured on right: multiple small colloid nodules LEFT: # of nodules measured on left: 1 1. 0.5 X 0.4 x 0.2 cm, mid mid, cystic or almost completely cystic, hypoechoic nodule, which is wid er than tall, with smooth margins, without echogenic foci. Prior size: no previous imaging Bilateral neck scanned, no evidence of lymphadenopathy. Heterogeneous normal-sized thyroid with 5 mm cystic nodule on the left marked by technologist. IMPRESSION: As above. No significant nodules present.
== END | disposition home or self-care (01) ==
LOC: RADUSWWP 16:48
PROVIDERS: ATTEND Family Medicine
DX: E04.1 Nontoxic single thyroid nodule (principal)
CPT/HCPCS: 76536

== ENCOUNTER → 2022-07-05 | Outpatient (CLI) | payer OTHER ==
--- NOTE | 2022-07-05 10:27 | CT ---
EXAMINATION TYPE: CT chest wo con DATE OF EXAM: 07/05/2022 COMPARISON: 03/10/2018 HISTORY: Abnormal CXR CT DLP: [address] of the chest was performed with lung and mediastinal window settings submitted. The la ck of contrast limits evaluation of the vascular, mediastinal and parenchymal structures including th e upper abdomen. LUNGS: The lungs are clear and free of infiltrate. No atelectasis. No pulmonary nodule or mass is de tected. No pleural effusion. No CT evidence of interstitial lung disease. There is hyperinflation c ompatible with COPD. MEDIASTINUM/TWILA: Thoracic aorta is of normal caliber with limited evaluation given lack of contrast . The heart is not enlarged. No evidence for mediastinal mass. No lymph nodes greater than 1cm. UPPER ABDOMEN: No significant abnormality is seen. OTHER: Pectus excavatum deformity of the anterior chest. IMPRESSION: 1. COPD. 2. Pectus deformity.
== END | disposition home or self-care (01) ==
LOC: RADCTMAIN 09:46
PROVIDERS: ATTEND Family Medicine
DX: J44.9 Chronic obstructive pulmonary disease, unspecified (principal); Q67.6 Pectus excavatum
CPT/HCPCS: 71250

== ENCOUNTER 2023-02-13 08:21 | Emergency (ER) | payer OTHER ==
[2023-02-13 08:49] VITALS: TEMP 97.4
[2023-02-13] MEDS ORDERED: SODIUM CHLORIDE 0.9% 1,000 ML IV STA (09:12)
[2023-02-13] MEDS ORDERED: SODIUM CHLORIDE 0.9% 500 ML 500 ML IV STA (09:12)
[2023-02-13 09:50] LABS: ALT 19 U/L (4-34); AST 23 U/L (14-36); African American GFR (CKD) >90 (>60 ml/min/1.73 sqM); Albumin 4.4 g/dL (3.5-5.0); Alkaline Phosphatase 77 U/L (38-126); Anion Gap 7 mmol/L; Blood Urea Nitrogen 12 mg/dL (7-17); Carbon Dioxide 29 mmol/L (22-30); Chloride 103 mmol/L (98-107); Glucose 101 mg/dL (74-99); Lipase 120 U/L (23-300); Non-African American GFR(CKD) >90 (>60 ml/min/1.73 sqM); Sodium 139 mmol/L (137-145); Total Bilirubin 0.6 mg/dL (0.2-1.3)
--- NOTE | 2023-02-13 09:51 | XR ---
EXAMINATION TYPE: XR KUB DATE OF EXAM: 02/13/2023 9:47 AM INDICATION: Patient age:Female; 47 years old; Reason for study: abdominal pain; COMPARISON: 05/11/2020 TECHNIQUE: One radiographic view of the abdomen was obtained. FINDINGS: The bowel gas pattern is nonspecific without dilated loops of small or large bowel. There i s no evidence for organomegaly or pneumoperitoneum. The osseous structures are intact. No abnormal calcifications are present. Fecal material and gas are demonstrated throughout the colon and rectum. Surgical clips within the abdomen. IMPRESSION: Nonspecific bowel gas pattern without radiographic evidence for acute process.
[2023-02-13 10:00] LABS: Basophils % (A) 0 %; Eosinophils # (A) 0.1 k/uL (0-0.7); Eosinophils % (A) 1 %; HGB 14.4 gm/dL (11.4-16.0); Lymphocytes % (A) 17 %; MCH 30.7 pg (25.0-35.0); MCHC 34.4 g/dL (31.0-37.0); MCV 89.1 fL (80.0-100.0); Mean Platelet Volume 8.2; Monocytes # (A) 0.3 k/uL (0-1.0); Monocytes % (A) 5 %; Neutrophils # (A) 4.5 k/uL (1.3-7.7); Neutrophils % (A) 75 %; Platelet Count 159 k/uL (150-450); RBC 4.71 m/uL (3.80-5.40); RDW 12.8 % (11.5-15.5)
--- NOTE | 2023-02-13 10:29 | ED ---
Abdominal Pain HPI - General Chief Complaint: Abdominal Pain Stated Complaint: abd pain Time Seen by Provider: 02/13/23 08:50 Source: patient, RN notes reviewed Mode of arrival: ambulatory Limitations: no limitations - History of Present Illness Initial Comments: 47-year-old female presents emergency from chief complaint of lower abdominal pain. Patient states she isn't constipated recently but stable night she had severe abdominal pain, cramping states that she was sweating pain. Patient states she's no dysuria no hematuria. Denies any prior abdominal surgeries. Denies chest pain shortness breath no flank pain or back pain. - Related Data Home Medications Medication Instructions Recorded Confirmed Ibuprofen [Motrin Ib] 800 mg PO TID PRN 03/10/18 04/14/20 Loratadine 10 mg PO DAILY PRN 04/14/20 04/14/20 Previous Rx's Medication Instructions Recorded Pantoprazole Sodium [Protonix] 40 mg PO DAILY #14 tablet. 04/14/20 Allergies Allergy/AdvReac Type Severity Reaction Status Date / Time Latex, Natural Rubber Allergy Rash/Hives Verified 02/13/23 08:49 Review of Systems ROS Statement: Those systems with pertinent positive or pertinent negative responses have been documented in the HPI. ROS Other: All systems not noted in ROS Statement are negative. Past Medical History Past Medical History: Musculoskeletal Disorder Additional Past Medical History / Comment(s): chronic neck pain, frequent he adaches-start back of head,thyroglossal cyst History of Any Multi-Drug Resistant Organisms: None Reported Past Surgical History: Adenoidectomy, Ear Surgery, Tonsillectomy, Tubal Ligation, Uterine Ablation Additional Past Surgical History / Comment(s): BMT.D & C, LEEP procedure, PAIN CLINIC INJECTIONS Past Anesthesia/Blood Transfusion Reactions: No Reported Reaction Past Psychological History: No Psychological Hx Reported Smoking Status: Current every day smoker Past Alcohol Use History: Occasional, Rare Past Drug Use History: None Reported - Past Family History Father Family Medical History: Cancer General Exam Limitations: no limitations General appearance: alert, in no apparent distress Head exam: Present: atraumatic, normocephalic, normal inspection Eye exam: Present: normal appearance, PERRL, EOMI. Absent: scleral icterus, conjunctival injection, periorbital swelling ENT exam: Present: normal exam, normal oropharynx, mucous membranes moist Neck exam: Present: normal inspection, full ROM. Absent: tenderness, meningismus, lymphadenopathy Respiratory exam: Present: normal lung sounds bilaterally. Absent: respiratory distress, wheezes, rales, rhonchi, stridor Cardiovascular Exam: Present: regular rate, normal rhythm, normal heart sounds. Absent: systolic murmur, diastolic murmur, rubs, gallop, clicks GI/Abdominal exam: Present: soft, tenderness, normal bowel sounds. Absent: di stended, guarding, rebound, rigid Back exam: Absent: CVA tenderness (R), CVA tenderness (L) Course Vital Signs 02/13/23 02/13/23 02/13/23 08:45 10:13 12:02 Temperature 97.4 F L Pulse Rate 101 H 87 86 Respiratory 18 16 20 Rate Blood Pressure 111/75 129/67 126/80 O2 Sat by Pulse 99 100 99 Oximetry Medical Decision Making - Medical Decision Making Was pt. sent in by a medical professional or institution (, PA, [employer] OF [employer], urgent care, hospital, or long term...) When possible be specific @ -No Did you speak to anyone other than the patient for history (EMS, parent, family, police, friend...)? What history was obtained from this source @ -No Did you review nursing and triage notes (agree or disagree)? Why? @ -I reviewed and agree with nursing and triage notes Were old charts reviewed (outside hosp., previous admission, EMS record, old EKG, old radiological studies, urgent care reports/EKG's, long term records)? Report findings @ -No old charts were reviewed Differential Diagnosis (chest pain, altered mental status, abdominal pain women, abdominal pain men, vaginal bleeding, weakness, fever, dyspnea, syncope, headache, dizziness, GI bleed, back pain, seizure, CVA, palpatations, mental health, musculoskeletal)? @ -Differential Abdominal Pain Women: Appendicitis, Cholecystitis, diverticulosis, ischemic bowel, pancreatitis, hepatitis, UTI, gastroenteritis, AAA, incarcerated hernia, bowel obstruction, constipation, inflammatory bowel, hepatitis, peptic ulcer disease, splenic infarction, perforated viscus, vulvitis, ovarian torsion, PID, kidney stone, placenta abruption, this is not meant to be an all-inclusive listle EKG interpreted by me (3pts min.). @ -As above X-rays interpreted by me (1pt min.). @ -X-ray shows large stool burden no obstructive pattern CT interpreted by me (1pt min.). @ -None done U/S interpreted by me (1pt. min.). @ -None done What testing was considered but not performed or refused? (CT, X-rays, U/S, labs)? Why? @ -None What meds were considered but not given or refused? Why? @ -None Did you discuss the management of the patient with other professionals (professionals i.e. , PA, [employer], lab, RT, psych nurse, medical social worker, firmware test engineer, teacher, officer captain, rehabilitation case coordinator)? Give summary @ -No Was smoking cessation discussed for >3mins.? @ -No Was critical care preformed (if so, how long)? @ -No Were there social determinants of health that impacted care today? How? (Homelessness, low income, unemployed, alcoholism, drug addiction, transportation, low edu. Level, literacy, decrease access to med. care, half-way, rehab)? @ -No Was there de-escalation of care discussed even if they declined (Discuss DNR or withdrawal of care, Hospice)? DNR status @ -No What co-morbidities impacted this encounter? (DM, HTN, Smoking, COPD, CAD, Cancer, CVA, ARF, Chemo, Hep., AIDS, mental health diagnosis, sleep apnea, morbid obesity)? @ -None Was patient admitted / discharged? Hospital course, mention meds given and route, prescriptions, significant lab abnormalities, going to OR and other pertinent info. @ -Discharge patient has evidence of constipation, left wrist there is unremarkable. Patient discharged with enemas return parameters were discussed. Undiagnosed new problem with uncertain prognosis? @ -No Drug Therapy requiring intensive monitoring for toxicity (Heparin, Nitro, Insulin, Cardizem)? @ -No Were any procedures done? @ -No Diagnosis/symptom? @ -Constipation, abdominal pain Acute, or Chronic, or Acute on Chronic? @ -Acute Uncomplicated (without systemic symptoms) or Complicated (systemic symptoms)? @ -uncomplicated Side effects of treatment? @ -No Exacerbation, Progression, or Severe Exacerbation? @ -No Poses a threat to life or bodily function? How? (Chest pain, [place], [place], pneumonia, PE, COPD, DKA, ARF, appy, cholecystitis, CVA, Diverticulitis, Homicidal, Suicidal, threat to staff... and all critical care pts) @ -No - Lab Data Result diagrams: 02/13/23 09:26 02/13/23 09:26 Lab Results 02/13/23 02/13/23 02/13/23 Range/Units 09:26 09:26 10:14 WBC 6.0 (3.8-10.6) k/uL RBC 4.71 (3.80-5.40) m/uL Hgb 14.4 (11.4-16.0) gm/dL Hct 42.0 (34.0-46.0) % MCV 89.1 (80.0-100.0) fL MCH 30.7 (25.0-35.0) pg MCHC 34.4 (31.0-37.0) g/dL RDW 12.8 (11.5-15.5) % Plt Count 159 (150-450) k/uL MPV 8.2 Neutrophils % 75 % Lymphocytes % 17 % Monocytes % 5 % Eosinophils % 1 % Basophils % 0 % Neutrophils # 4.5 (1.3-7.7) k/uL Lymphocytes # 1.0 (1.0-4.8) k/uL Monocytes # 0.3 (0-1.0) k/uL Eosinophils # 0.1 (0-0.7) k/uL Basophils # 0.0 (0-0.2) k/uL Sodium 139 (137-145) mmol/L Potassium 4.0 (3.5-5.1) mmol/L Chloride 103 (98-107) mmol/L Carbon Dioxide 29 (22-30) mmol/L Anion Gap 7 mmol/L BUN 12 (7-17) mg/dL Creatinine 0.73 (0.52-1.04) mg/dL Est GFR (CKD-EPI)AfAm >90 (>60 ml/min/1.73 sqM) Est GFR (CKD-EPI)NonAf >90 (>60 ml/min/1.73 sqM) Glucose 101 H (74-99) mg/dL Calcium 9.0 (8.4-10.2) mg/dL Total Bilirubin 0.6 (0.2-1.3) mg/dL AST 23 (14-36) U/L ALT 19 (4-34) U/L Alkaline Phosphatase 77 (38-126) U/L Total Protein 7.0 (6.3-8.2) g/dL Albumin 4.4 (3.5-5.0) g/dL Lipase 120 (23-300) U/L Urine Color Light Yellow Urine Appearance Clear (Clear) Urine pH 6.5 (5.0-8.0) Ur Specific [place] 1.003 (1.001-1.035) Urine Protein Negative (Negative) Urine Glucose (UA) Negative (Negative) Urine Ketones Negative (Negative) Urine Blood Negative (Negative) Urine Nitrite Negative (Negative) Urine Bilirubin Negative (Negative) Urine Urobilinogen <2.0 (<2.0) mg/dL Ur Leukocyte Esterase Negative (Negative) Disposition Clinical Impression: Abdominal pain, Constipation Disposition: HOME SELF-CARE Condition: Stable Instructions (If sedation given, give patient instructions): Constipation (ED) Additional Instructions: Please return to the Emergency Department if symptoms worsen or any other concerns. Is patient prescribed a controlled substance at d/c from ED?: No Referrals: Laura Feliz MD [Primary Care Provider] - 1-2 days Time of Disposition: 11:16
[2023-02-13 10:45] LABS: Appearance,Urine Clear (Clear); Bilirubin,Urine Negative (Negative); Blood,Urine Negative (Negative); Color,Urine Light Yellow; Glucose,Urine (UA) Negative (Negative); Ketones,Urine Negative (Negative); Leukocyte Esterase,Urine Negative (Negative); Nitrite,Urine Negative (Negative); PH, Urine 6.5 (5.0-8.0); Protein,Urine Negative (Negative); Specific Gravity,Urine 1.003 (1.001-1.035); Urobilinogen,Urine <2.0 mg/dL (<2.0)
[2023-02-13] MEDS ORDERED: DOCUSATE 283 MG/5 ML ENEMA RECTAL STA (11:14)
[2023-02-13] MEDS ORDERED: NA PHOS,M-B/NA PHOS,DI-BA 133 ML ENEMA RECTAL STA (11:15)
[2023-02-13 12:07] VITALS: BP 126/80; PULSE 86; RESP 20
== END 2023-02-13 12:05 | disposition home or self-care (01) ==
LOC: EC 08:21
DX: R10.30 Lower abdominal pain, unspecified (principal); K59.00 Constipation, unspecified; F17.200 Nicotine dependence, unspecified, uncomplicated; Z91.040 Latex allergy status
CPT/HCPCS: 36415; 74018; 80053; 81003; 83690; 85025; 96360; 99284

== ENCOUNTER → 2023-07-03 | Outpatient (CLI) | payer OTHER ==
--- NOTE | 2023-07-03 10:33 | US ---
EXAMINATION TYPE: US thyroid st tissue head/neck DATE OF EXAM: 07/03/2023 COMPARISON: CLINICAL INDICATION: Female, 47 years old with history of E04.1 NONTOXIC SINGLE THYROID NODULE; FOLLO W UP . Not on thyroid meds. GLAND SIZE: Right Lobe: cm Overall Parenchyma: homogenous Left Lobe: cm Overall Parenchyma: homogeneous Isthmus Thickness: cm NODULES RIGHT: # of nodules measured on right: 0 Multiple colloid nodules seen with largest = 2.2 mm LEFT: # of nodules measured on left: 1 1. 0.4 X 0.5 x 0.4 cm, mid mid, solid or almost completely solid, hypoechoic nodule, which is wider than tall, with ill-defined margins, without echogenic foci. Prior size: 0.5 x 0.4 x 0.2 cm ISTHMUS: # of nodules measured in the isthmus: 0 Bilateral neck scanned with prominent lymph node seen lateral left neck, short axis = 0.5 cm and eddie ical thickness= 2.7 mm. IMPRESSION: Nonspecific subcentimeter nodules redemonstrated.
== END | disposition home or self-care (01) ==
LOC: RADUSWWP 09:35
PROVIDERS: ATTEND Family Medicine
DX: E04.2 Nontoxic multinodular goiter (principal)
CPT/HCPCS: 76536

== ENCOUNTER 2023-12-23 09:35 | Day surgery (SDC) | payer OTHER ==
[2023-12-23] MEDS: LACTATED RINGERS 1,000 ML IV SCH (10:01)
[2023-12-23] MEDS: fentaNYL (PF) 50 MCG/ML 2 ML AMP IVP ONE (10:22)
[2023-12-23] MEDS ORDERED: PROPOFOL 10 MG/ML 20 ML VIAL IV ONE (10:24)
[2023-12-23] MEDS ORDERED: LIDOCAINE 1% INJ 10MG/ML (20 ML MDV) ONE (10:24)
[2023-12-23 10:34] VITALS: RESP 16; TEMP 98
--- NOTE | 2023-12-23 10:35 | P.GSHP ---
History of Present Illness H&P Date: 12/23/23 Chief Complaint: Colon cancer screening Patient here today for colonoscopy. No bowel complaints. Family history of colon polyps. No family history of colon cancer. Past Medical History Past Medical History: Musculoskeletal Disorder Additional Past Medical History / Comment(s): chronic neck pain, frequent headaches-start back of head,thyroglossal cyst, occasional constipation History of Any Multi-Drug Resistant Organisms: None Reported Past Surgical History: Adenoidectomy, Ear Surgery, Tonsillectomy, Tubal Ligation, Uterine Ablation Additional Past Surgical History / Comment(s): BMT., D & C, LEEP procedure, PAIN CLINIC INJECTIONS Past Anesthesia/Blood Transfusion Reactions: No Reported Reaction Smoking Status: Current every day smoker - Past Family History Father Family Medical History: Cancer Medications and Allergies Home Medications Medication Instructions Recorded Confirmed Type Acetaminophen Tab [Tylenol] 650 mg PO Q4H PRN 12/19/23 12/23/23 History Aspirin/Acetaminophen/Caffeine 1 each PO DIRECTED PRN 12/19/23 12/23/23 History [Excedrin Migraine Caplet] Cyclobenzaprine [Flexeril] 10 mg PO HS 12/19/23 12/23/23 History Ibuprofen [Motrin Ib] 200 mg PO DIRECTED PRN 12/19/23 12/23/23 History Allergies Allergy/AdvReac Type Severity Reaction Status Date / Time Latex, Natural Rubber Allergy Rash/Hives Verified 12/23/23 10:01 Surgical - Exam Vital Signs Temp Pulse Resp BP Pulse Ox 98 F 107 H 16 133/71 98 12/23/23 10:15 12/23/23 10:15 12/23/23 10:15 12/23/23 10:15 12/23/23 10:15 Physical exam: General: Well-developed, well-nourished HEENT: Normocephalic, sclerae nonicteric Abdomen: Nontender, nondistended Extremities: No edema Neuro: Alert and oriented Assessment and Plan (1) Colon cancer screening Narrative/Plan: Will proceed with colonoscopy at this time. Current Visit: Yes Status: Acute Code(s): Z12.11 - ENCOUNTER FOR SCREENING FOR MALIGNANT NEOPLASM OF COLON SNOMED Code(s): 956106196
--- NOTE | 2023-12-23 10:59 | P.PCN ---
Date of Procedure: 12/23/23 Procedure(s) Performed: PREOPERATIVE DIAGNOSIS: Colon cancer screening POSTOPERATIVE DIAGNOSIS: Sigmoid polyp, rectal polyp x 2 PROCEDURE: Colonoscopy with snare polypectomy ANESTHESIA: MAC SURGEON: Vidal Feliciano M.D. SPECIMENS: Polyps ENDOSCOPIC PROCEDURE: The patient was placed on the endoscopy table in the left decubitus position. The Olympus colonoscope was inserted into the anus and passed under direct visualization to the base of the cecum. The appendiceal orifice was visualized. From that point the scope was slowly withdrawn inspecting all surfaces carefully. There were no neoplastic inflammatory or polypoid lesions throughout the cecum, ascending, transverse, and descending colon. In the sigmoid colon a small polyp was seen and removed using the snare with cautery technique. In the rectum 2 additional small polyps were removed in a similar fashion. There was no visible diverticulosis. The patient's prep was somewhat suboptimal with some retained liquid and solid stool throughout. A small portion of the mucosa was not able to be visualized. Digital rectal examination was normal. The patient was taken to the recovery room in stable condition per anesthesia guidelines. RECOMMENDATIONS: Await biopsy results. Anticipate repeat colonoscopy 5 to 10 years. Will contact patient with pathology findings.
[2023-12-23 11:46] VITALS: BP 105/56; PULSE 87
== END 2023-12-23 11:54 | disposition home or self-care (01) ==
LOC: ORWHC2ENDO 09:35
PROVIDERS: ATTEND Surgery
DX: Z12.11 Encounter for screening for malignant neoplasm of colon (principal); K62.1 Rectal polyp; F17.200 Nicotine dependence, unspecified, uncomplicated; F17.210 Nicotine dependence, cigarettes, uncomplicated; M19.90 Unspecified osteoarthritis, unspecified site; Z90.89 Acquired absence of other organs; Z98.51 Tubal ligation status; Z79.82 Long term (current) use of aspirin; Z79.899 Other long term (current) drug therapy; Z91.040 Latex allergy status; Z98.890 Other specified postprocedural states; Z83.719 Family history of colon polyps, unspecified
CPT/HCPCS: 81025; 88305; 45385; J2001; J3010; J2704

== ENCOUNTER 2024-05-17 12:38 | Emergency (ER) | payer OTHER ==
[2024-05-17] MEDS ORDERED: KETOROLAC 15 MG/ML 1 ML VIAL ONE (18:24)
[2024-05-17] MEDS ORDERED: CLINDAMYCIN 150 MG CAP ONE ×2 (19:40→19:50)
--- NOTE | 2024-06-08 08:27 | CT ---
DATE OF EXAM: 05/17/2024 EXAM: CT maxillofacial with IV contrast. Patient age:AMELIE GIBBS : 1975 Reason for study: Right sided facial swelling, COMPARISON: None, please note PACS downtime occurred during the radiologist interpretation of these i mages with limited priors/reports. TECHNIQUE: Multiple unenhanced axial CT images were obtained of the facial bones soft tissue and bone windows. Coronal, axial and sagittal reformatted images were also provided in soft tissue and bone windows and submitted for interpretation. IV contrast, ISO 300 [address] dose reduction strategies were utilized during this examination. Total DLP was 343 mG ycm. FINDINGS: There may be mild asymmetric right soft tissue swelling on the right parotid gland. No stones are munir ntified. There is no evidence of fracture, subluxation, or dislocation. The orbital contents are unre markable. The temporal-mandibular joints appear symmetric. The visualized portion of the paranasal si nuses appear clear. IMPRESSION: Mild soft tissue swelling around the right parotid gland correlate for Parotitis Called findings to DR beltran 657pm 05/17/2024
== END 2024-05-17 19:50 | disposition home or self-care (01) ==
LOC: EC 12:38
DX: M26.621 Arthralgia of right temporomandibular joint (principal)
CPT/HCPCS: 70487; 80053; 85025; 99283

== ENCOUNTER → 2024-07-21 | Outpatient (CLI) | payer OTHER ==
--- NOTE | 2024-07-21 11:02 | US ---
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 FINDINGS: GLAND SIZE: Right Lobe: 4.7 x 1.7 x 1.5 cm Overall Parenchyma: homogeneous 07/03/2023 Left Lobe: 4.4 x 1.7 x 1.4 cm Overall Parenchyma: homogeneous Isthmus Thickness: 0.2 cm NODULES RIGHT: # of nodules measured on right: 0 Two colloid cysts visualized measuring = 0.2 and 0.2 cm LEFT: # of nodules measured on left: 1 1. 0.4 X 0.4 x 0.4 cm, mid mid, solid or almost completely solid, hypoechoic nodule, which is wider than tall, with smooth margins, without echogenic foci. TR 4 Prior size: 0.4 x 0.5 x 0.4 cm ISTHMUS: # of nodules measured in the isthmus: 0 Bilateral neck scanned, no evidence of lymphadenopathy. IMPRESSION: Bilateral too small to characterize lesions recommend continued surveillance. 2017 ACR TI-RADS LEVEL: TR-RADS 4 - Moderately Suspicious: Follow if > 1 cm, FNA if > 1.5 cm *Highest TI-RADS level nodule reported [email or web address] [facility], , 07/21/2024 11:00 AM
--- NOTE | 2024-07-21 11:19 | CTL ---
EXAMINATION TYPE: CT Low Dose Lung DATE OF EXAM ORDERED: 07/21/2024 HISTORY: Abnormal findings of diagnostic imaging of the body. Lung cancer screening CT DLP: 52.[address] CTDI: 1.40 mGy Automated exposure control for dose reduction was used. SCREENING VISIT: First screening visit COMPARISON: CT chest 07/05/2022, 05/08/2017, CTA chest 03/10/2018 TECHNIQUE: Low dose computed tomography scan was performed through the chest at 1 mm thick sections a nd reconstructed images in multiple planes at 1 mm and [address] DIAGNOSTIC QUALITY: Satisfactory FINDINGS: Nodules: Stable right lower lobe 3.6 mm solid pulmonary nodule (series 4, image 202). Stable left lower lobe 1.9 mm solid pulmonary nodule (series 4, image 166). No new or enlarging pulmonary nodule. LUNGS: COPD: Severity: None Fibrosis: Severity: None Lymph nodes: None Other findings: Linear scarring within the lingula and right middle lobe. RIGHT PLEURAL SPACE: Effusion: None Calcification: None Thickening: None Pneumothorax: None LEFT PLEURAL SPACE: Effusion: None Calcification: None Thickening: None Pneumothorax: None HEART: Heart Size: Normal Coronary Calcification: None Pericardial Effusion: None OTHER FINDINGS: Upper abdomen: None Bony thorax: Redemonstration of pectus excavatum with narrowest AP diameter of 5.3 cm. Supraclavicular region: None Other: None IMPRESSION: 1. Couple of stable pulmonary nodules measuring less than 4 mm. Considered benign. No new or enlargin g pulmonary nodules. 2. Pectus excavatum deformity redemonstrated. CT LUNG RAD AND CT CHEST RECOMMENDATION: Lung-Rad 2 Benign Appearance or Behavior: Continue annual sc reening with LDCT in 12 months. S Modifier (other clinically significant findings): None [facility], , 07/21/2024 11:16 AM
== END | disposition home or self-care (01) ==
LOC: RADUSWWP 09:56
PROVIDERS: ATTEND Family Medicine
CPT/HCPCS: 71271; 76536